=== PATIENT | male | born 1950 | race Caucasian/White ===

== ENCOUNTER 2017-04-09 23:53 | Emergency (ER) | payer MEDICARE, BC ==
[2017-04-10] MEDS ORDERED: Levofloxacin 500 MG Tab PO ONE (02:22)
[2017-04-10 02:36] VITALS: BP 161/86
--- NOTE | 2017-04-10 10:29 | ER ---
DATE SEEN: 04/09/2017 TIME SEEN: The patient was seen at 0048 hours. HISTORY OF PRESENT ILLNESS: Bonilla is a 66-year-old man who has been stricken by Parkinson's, has marked decrease in both his speech and has a flexion posture to his neck. It initially seemed like he was minimally interactive, did not care who is here, but then I realized that this is his mental status, and he has very soft almost difficult to hear speech, prostate carcinoma, and thought perhaps he might have a bladder infection. He has had a right shoulder injury in the past. He was at a gun show today, got home at 1500 hours, had been resting at 1800 hours, and had pizza and after that he vomited within half hour. No one else vomited. A year ago in May 2015, he had a urinary tract infection and required several days of hospitalization. He came this evening to make sure that he did not have a urinary tract infection and worried that he might have potential recurrence of urinary tract infection. PAST SURGICAL HISTORY: The patient is status post cholecystectomy. SOCIAL HISTORY: Nonsmoker. PHYSICAL EXAMINATION: VITAL SIGNS: Blood pressure 122/81, heart rate 71 and regular, respirations 16, oxygen saturation 100%, and 36.3 degrees centigrade. HEENT: PERRLA intact. Pharynx without abnormality. No cervical adenopathy. LUNGS: Clear without rales or rhonchi. HEART: S1, S2. No murmur. ABDOMEN: Soft. No guarding. No abdominal discomfort. EXTREMITIES: Without abnormality. No CVA percussion tenderness. : He has mild discomfort, suprapubic, not extensive. PELVIC: Not performed. ASSESSMENT: Rule out urinary tract infection, has pyuria, elevated leukocyte esterase, and moderate bacteriuria. Culture pending. PLAN: Start with Septra DS one b.i.d. plus Pyridium 200 mg p.o. in the ED. Then, fill prescriptions for Pyridium in the drug store. He has enough Septra dispensed for complete treatment of urinary tract infection. The patient to follow up with doctor as needed. If he is markedly symptomatic and is resistant to Septra DS, then he needs to be called regarding his status. The patient is advised to call back in 2 days to see what the culture results are. /[id number] LS/INÉS
--- NOTE | 2017-04-11 11:48 | ER ---
DATE SEEN: 04/09/2017 TIME SEEN: The patient was seen 0020 hours. HISTORY OF PRESENT ILLNESS: This 66-year-old man who was at a gun show this afternoon, which finished at 1500 hours and went home and rested. He has known Parkinson's, prostate cancer, bladder infections, right shoulder abnormality, and urinary tract infection in May 2015. At 1800 hours, he had pizza at a store. Also then, he had, at about that time between 1730 hours and 1830 hours, vomiting. He feels weak. He is soft-spoken. His does most of the talking, because of Parkinson's, and it is quite significant. ALLERGIES: None. MEDICATIONS: 1. Trazodone 50 at bedtime. 2. Requip 2 mg q.i.d. 3. Entacapone, carbidopa, l-dopa 2.5 tablets at 0700 hours, the same thing 25/100, two tablets 1100 hours, 1400 hours, and 1700 hours. REVIEW OF SYSTEMS: Somewhat limited. He is a poor historian, but his is an excellent historian. Denies vision problems, but he has difficulty speaking. No history of difficulty swallowing. No recent cough, sore throat, sinus congestion, or rhinorrhea. No shortness of breath, chest pain, irregular heartbeat, or abdominal discomfort. PHYSICAL EXAMINATION: VITAL SIGNS: Blood pressure 149/82, heart rate 54, respirations 18, oxygen saturation 100%, and temperature 36.4 degrees. GENERAL: Initially I worried that patient seemed "hard to get", and I wondered if he was "toying with me" because of his minimal responsiveness and quiet manner. Then, I discovered this was the side effect of his Parkinson's; decreased mentation and interaction. He is soft-spoken. His voice is difficult to hear. HEENT: PERRLA intact. He has marked variable nystagmus, horizontal and vertical nystagmus. He has conjugate gaze. Nares negative. Pharynx negative. Gag in place. NECK: No bruits. No thyromegaly. No masses in neck. LUNGS: Clear without rales, rhonchi, or wheezes. HEART: S1, S2. No murmur. ABDOMEN: Soft. No guarding. No abdominal discomfort. No CVA percussion tenderness. RECTAL: I did not do a rectal/prostate exam. EXTREMITIES: Lower extremities without edema. Deep tendon reflexes hypoactive upper and lower extremities. NEUROLOGIC: Cranial nerves 2 through 12 intact with decreased hearing and speech enunciation, suggesting abnormality in 12, 10, 11 cranial nerves. ASSESSMENT: 1. Parkinson's. 2. Rule out urinary tract infection. 3. Rule out early sepsis - blood culture, urine culture, CBC, and CMP pending. Lactate pending. Procalcitonin not performed. /[id number] 330 /MODL LAB RESULTS: White count 6,800, PMNs 87, lymphs 10, monos 3, glucose 155, moderate bacteriuria. Remainder of tests relatively normal. Hemoglobin is slightly elevated at 16 and platelets 206,000. I discussed with him and his . Plan is to use Levaquin 1 tablet daily 500 mg, 5 tablets. His is going to call on Monday to find out the results of the culture, if it is sensitive to Levaquin. 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 His mind is not what it used to be. He knows what is going, and the Parkinson's has been savaging his brain by inches and fractions of inches. DIAGNOSES: 1. Urinary tract infection. 2. Parkinson's. 3. Slow mental fall-away. 4. Prostate cancer. 5. Urinary tract infection secondary to prostate cancer. /[id number] /MODL
== END 2017-04-10 02:40 | disposition home or self-care (01) ==
LOC: FB.ED 23:53
DX: N39.0 Urinary tract infection, site not specified (principal); C61 Malignant neoplasm of prostate; G20 Parkinson's disease
CPT/HCPCS: 36415; 80053; 81001; 83605; 85025; 87040; 99283; A9270